=== PATIENT | female | born 1945 | race Two or more races ===

== ENCOUNTER 2018-12-18 10:41 | Emergency (ER) | payer MEDICARE, OTHER ==
[~2018-12-18] VITALS: Ht 154.9 cm; Wt 74.8 kg
[2018-12-18 10:52] VITALS: BP 154/133
[2018-12-18] MEDS ORDERED: FAMOTIDINE40 MG ORAL (10:52)
[2018-12-18] MEDS ORDERED: AMLODIPINE BES2.5 MG ORAL (10:52)
--- NOTE | 2018-12-18 10:55 | NUR ---
ED Nurse Note: AMBULATED IN TO ER FROM HOME WITH FAMILY MEMBER DUE TO ABDOMINAL PAIN 06/03 WITH N/V/D SINCE LAST NIGHT.
[2018-12-18] MEDS ORDERED: Pantoprazole Inj IV ONE (11:30)
[2018-12-18 11:32] LABS: BASOPHILS % (AUTO) 1.4 % (0.0-2.0); EOSINOPHILS % (AUTO) 0.4 % (0.0-3.0); HEMATOCRIT 36.3 % (37.0-47.0); LYMPHOCYTES % (AUTO) 14.3 % (20.0-45.0); MEAN CORPUSCULAR VOLUME 67 FL (80-99); MONOCYTES % (AUTO) 7.5 % (1.0-10.0); NEUTROPHILS % (AUTO) 76.4 % (45.0-75.0); PLATELET COUNT 219 K/UL (150-450); RED CELL DISTRIBUTION WIDTH 13.6 % (11.6-14.8); WHITE BLOOD COUNT 7.8 K/UL (4.8-10.8)
[2018-12-18 11:33] LABS: APPEARANCE,URINE CLEAR; BILIRUBIN, URINE NEGATIVE (NEGATIVE); COLOR,URINE YELLOW; GLUCOSE, URINE (UA) NEGATIVE (NEGATIVE); KETONES,URINE 1+ (NEGATIVE); LEUKOCYTE ESTERASE ,URINE 1+ (NEGATIVE); NITRITE,URINE NEGATIVE (NEGATIVE); PH,URINE 6.5 (4.5-8.0); PROTEIN,URINE 2+ (NEGATIVE); UROBILINOGEN,URINE NORMAL MG/DL (0.0-1.0)
[2018-12-18 11:40] LABS: ANION GAP 10 mmol/L (5-15); BLOOD UREA NITROGEN 14 mg/dL (7-18); CALCIUM 9.2 MG/DL (8.5-10.1); CARBON DIOXIDE 27 MMOL/L (21-32); CHLORIDE 103 MMOL/L (98-107); CREATININE 0.6 MG/DL (0.55-1.30); POTASSIUM 3.5 MMOL/L (3.5-5.1); SODIUM 140 MMOL/L (136-145)
[2018-12-18 11:50] LABS: ALANINE AMINOTRANSFERASE 27 U/L (12-78); ALBUMIN 4.4 G/DL (3.4-5.0); ALBUMIN/GLOBULIN RATIO 1.1 (1.0-2.7); ALKALINE PHOSPHATASE 82 U/L (46-116); ASPARTATE AMINO TRANSFERASE 20 U/L (15-37); BILIRUBIN,TOTAL 1.8 MG/DL (0.2-1.0)
[2018-12-18 11:51] LABS: BILIRUBIN,DIRECT 0.2 MG/DL (0.0-0.3)
[2018-12-18] MEDS ORDERED: Isovue-300 100ml vial INJ PRN (12:00)
--- NOTE | 2018-12-18 13:33 | Diagnostic Imaging Report ---
Indication: Abdominal pain Technique: Continuous helical transaxial imaging of the abdomen and pelvis was obtained from the lung bases to the pubic symphysis during intravenous contrast administration. Coronal 2-D reformats were also obtained. Study obtained in a Siemens sensation [address] Automatic Exposure Control was utilized. Total Dose length Product (DLP): 906.[address] Dose Index Volume (CTDIvol): 17.93 mGy Comparison: None Findings: There is basilar atelectasis within the visualized portion of the lung bases. Gallbladder is unremarkable. The spleen and liver are unremarkable. The heart is enlarged. There is a hiatal hernia. Pancreas is unremarkable. There are renal cysts present on the left. The larger of the 2 measures 4.2 cm. There is a small adrenal nodule on the right measuring approximately 1.4 cm. Consider reevaluation follow-up with MRI. Aortoiliac calcifications are present. The appendix is not identified but there are no secondary signs of appendicitis. Small umbilical hernia containing fat demonstrated. No evidence of bowel obstruction or free fluid. Urinary bladder is unremarkable. There is an L5 spondylolysis present bilaterally. Grade 1-2 spondylolisthesis of L5 on S1 demonstrated. The S1 is transitional and partially lumbarized. There is moderate narrowing and vacuum phenomenon of the L5-S1 disc. IMPRESSION: No acute findings in the abdomen or pelvis identified. Appendix not seen. No secondary signs of acute appendicitis. 4.2 cm left renal cyst. Smaller left cysts renal cyst also noted. 1.4 cm right adrenal nodule. Recommend follow-up MRI. Atherosclerotic vascular disease Basilar atelectasis. L5 spondylolysis. Grade 1-2 spondylolisthesis L5 on S1. Transitional anatomy with lumbarization of S1. Small umbilical hernia containing fat Small hiatal hernia. The CT scanner at [facility] is accredited by the [employer] and the scans are performed using dose optimization techniques as appropriate to a performed exam including Automatic Exposure control.
--- NOTE | 2018-12-18 14:19 | Emergency Room Report ---
History of Present Illness General Chief Complaint: Abdominal Pain Source: Patient Present Illness HPI Patient is a 73-year-old female presented after increased burning sensation to the epigastric area. Patient reports having some hematemesis. She reports having no bloody stools. She had prior history of endoscopy proxy 1 year ago. She denies any fever. She reports having some normal bowel movements earlier in the day. She does not take any anticoagulants. Allergies: Coded Allergies: PENICILLINS (Verified Allergy, Unknown, 12/18/18) Patient History Past Medical History: see triage record Now: No Reviewed Nursing Documentation: PMH: Agreed; PSxH: Agreed Nursing Documentation-PM Past Medical History: No History, Except For Hx Cardiac Problems: Yes Hx Hypertension: Yes Review of Systems All Other Systems: negative except mentioned in HPI Physical Exam Vital Signs Date Time Temp Pulse Resp B/P (MAP) Pulse Ox O2 Delivery O2 Flow Rate FiO2 12/18/18 10:47 97.7 74 20 154/78 95 Room Air Sp02 EP Interpretation: reviewed, normal General Appearance: normal inspection, well appearing, no apparent distress, alert, GCS 15, non-toxic Head: atraumatic ENT: normal ENT inspection, hearing grossly normal, normal voice Neck: normal inspection, full range of motion, supple, no bony tend Respiratory: normal inspection, lungs clear, normal breath sounds, no respiratory distress, no retraction, no wheezing Cardiovascular #1: regular rate, rhythm, no edema Gastrointestinal: normal inspection, normal bowel sounds, non tender, soft, no guarding, no hernia Genitourinary: no CVA tenderness Musculoskeletal: normal inspection, back normal, normal range of motion Neurologic: normal inspection, alert, oriented x3, responsive, cotton agent III-XII nml as tested, speech normal Psychiatric: normal inspection, judgement/insight normal, mood/affect normal Skin: normal inspection, normal color, no rash Medical Decision Making Diagnostic Impression: Primary Impression: Gastritis Additional Impressions: Hiatal hernia Renal cyst Adenoma ER Course Patient presented for abdominal pain. Differential diagnoses included ischemic bowel, appendicitis, perforated viscus, abdominal aortic aneurysm, inferior myocardial infarction, viral gastroenteritis among others. Because of complexity of patient's case laboratory testing and imaging studies were ordered.Patient's laboratory studies are unremarkable. Patient was given IV Protonix. CT abdomen pelvis read by radiology showed bilateral renal cysts as well as adrenal adenoma. There is no evidence of bowel obstruction. Patient was offered admission which she declined. Patient was given a prescription for acid blockers.Due to patient's risk of bleeding and epigastric pain patient was advised hospitalization was warranted for monitoring of her blood counts. The patient was advised risk benefits alternatives of leaving AGAINST MEDICAL ADVICE and he indicated understanding and all questions are answered patient still continued want to leave and signed AGAINST MEDICAL ADVICE. Despite risks including but not limited to disability and worsening of current lifestyle. Labs Test 12/18/18 11:05 White Blood Count 7.8 K/UL (4.8-10.8) Red Blood Count 5.40 M/UL (4.20-5.40) Hemoglobin 11.0 G/DL (12.0-16.0) Hematocrit 36.3 % (37.0-47.0) Mean Corpuscular Volume 67 FL (80-99) Mean Corpuscular Hemoglobin 20.3 PG (27.0-31.0) Mean Corpuscular Hemoglobin Concent 30.1 G/DL (32.0-36.0) Red Cell Distribution Width 13.6 % (11.6-14.8) Platelet Count 219 K/UL (150-450) Mean Platelet Volume 6.9 FL (6.5-10.1) Neutrophils (%) (Auto) 76.4 % (45.0-75.0) Lymphocytes (%) (Auto) 14.3 % (20.0-45.0) Monocytes (%) (Auto) 7.5 % (1.0-10.0) Eosinophils (%) (Auto) 0.4 % (0.0-3.0) Basophils (%) (Auto) 1.4 % (0.0-2.0) Prothrombin Time 10.3 SEC (9.30-11.50) Prothromb Time International Ratio 1.0 (0.9-1.1) Activated Partial Thromboplast Time 25 SEC (23-33) Urine Color Yellow Urine Appearance Clear Urine pH 6.5 (4.5-8.0) Urine Specific Bells 1.015 (1.005-1.035) Urine Protein 2+ (NEGATIVE) Urine Glucose (UA) Negative (NEGATIVE) Urine Ketones 1+ (NEGATIVE) Urine Blood 3+ (NEGATIVE) Urine Nitrite Negative (NEGATIVE) Urine Bilirubin Negative (NEGATIVE) Urine Urobilinogen Normal MG/DL (0.0-1.0) Urine Leukocyte Esterase 1+ (NEGATIVE) Urine RBC 5-10 /HPF (0 - 2) Urine WBC 0-2 /HPF (0 - 2) Urine Squamous Epithelial Cells Few /LPF (NONE/OCC) Urine Bacteria Occasional /HPF (NONE) Urine Mucus Few /LPF (NONE/OCC) Sodium Level 140 MMOL/L (136-145) Potassium Level 3.5 MMOL/L (3.5-5.1) Chloride Level 103 MMOL/L (98-107) Carbon Dioxide Level 27 MMOL/L (21-32) Anion Gap 10 mmol/L (5-15) Blood Urea Nitrogen 14 mg/dL (7-18) Creatinine 0.6 MG/DL (0.55-1.30) Estimat Glomerular Filtration Rate mL/min (>60) Glucose Level 118 MG/DL (74-106) Calcium Level 9.2 MG/DL (8.5-10.1) Total Bilirubin 1.8 MG/DL (0.2-1.0) Direct Bilirubin 0.2 MG/DL (0.0-0.3) Aspartate Amino Transf (AST/SGOT) 20 U/L (15-37) Alanine Aminotransferase (ALT/SGPT) 27 U/L (12-78) Alkaline Phosphatase 82 U/L (46-116) Total Protein 8.4 G/DL (6.4-8.2) Albumin 4.4 G/DL (3.4-5.0) Globulin 4.0 g/dL Albumin/Globulin Ratio 1.1 (1.0-2.7) Lipase 71 U/L (73-393) Last Vital Signs Date Time Temp Pulse Resp B/P (MAP) Pulse Ox O2 Delivery O2 Flow Rate FiO2 12/18/18 10:52 97.7 70 25 154/133 100 Room Air Status: improved Disposition: AGAINST MEDICAL ADVICE Condition: Serious Referrals: DIEUDONNE RIVERA MD (PCP) Omar Patton MD Dec 18, 2018 14:19
[2018-12-18 14:34] VITALS: BP 151/74
--- NOTE | 2018-12-18 14:36 | NUR ---
ED Nurse Note: PT requested to sign AMA. Notified THAI and ROBERT Soares. All the risks and consequences involved in leaving the hospital at this time, the benefits of continued treatment and hospitalization was informed. Pt verbalized understanding but still wants to leave. AMA form signed. IV removed. VSS. Pt ambulated out of ER with all the belongings with assistance of pt's family member. No s/s of distress.
== END 2018-12-18 14:35 | disposition left against medical advice (07) ==
LOC: EMR 11:00 → EDBEDREQ 12:11 → UNDOADMIN 12:33 → 2E 12:33 → EDBEDREQ 12:52 → EMR 14:35 → CANBEDREQ 14:51
DX: K29.70 Gastritis, unspecified, without bleeding (principal); K44.9 Diaphragmatic hernia without obstruction or gangrene; N28.1 Cyst of kidney, acquired; I10 Essential (primary) hypertension; Z88.0 Allergy status to penicillin; K42.9 Umbilical hernia without obstruction or gangrene
CPT/HCPCS: 36415; 74177; 80053; 81003; 82248; 83690; 85025; 85610; 85730; 86850; 86900; 86901; 96374; 99284; C9113; Q9967